=== PATIENT | female | born 1970 | race Caucasian/White ===

== ENCOUNTER 2021-05-12 12:55 | Outpatient (CLI) | payer OTHER, SELFPAY ==
[2021-05-12 14:24] LABS: Basophils Percent Auto 0.8 % (0.2-1.2); Eosinophils Absolute Auto 0.2 K/mm3 (0-0.3); Eosinophils Percent Auto 6.7 % (0-4.4); Hematocrit 37.9 % (37.0-47.0); Hemoglobin 12.6 g/dL (12.0-15.0); Immature Granulocyte Absolute 0.01 K/mm3 (0.00-0.031); Immature Granulocyte Percent A 0.3 % (0-0.5); Lymphocytes Absolute Auto 0.94 K/mm3 (0.9-3.2); Lymphocytes Percent Auto 26.4 % (18.3-44.2); Mean Corpuscular HGB Conc 33.2 g/dl (32-36); Mean Corpuscular Volume 90.2 fl (80-100); Mean Platelet Volume 10.2 fl (7.4-10.4); Monocytes Absolute Auto 0.3 K/mm3 (0.1-0.6); Monocytes Percent Auto 7.9 % (2.6-8.5); Neutrophils Absolute Auto 2.1 K/mm3 (1.3-6.7); Neutrophils Percent Auto 57.9 % (45.5-73.1); Platelet Count Result 287 k/mm3 (150-375); Red Cell Distribution Width 12.1 % (11.5-14.5); White Blood Count 3.6 K/mm3 (4.5-10.0)
== END 2021-05-12 12:56 | disposition home or self-care (01) ==
LOC: ANHSURGERY 12:59
PROVIDERS: PCP Family Medicine; Visit Provider Obstetrics & Gynecology
DX: Z01.812 Encounter for preprocedural laboratory examination (principal); N81.4 Uterovaginal prolapse, unspecified; Z51.81 Encounter for therapeutic drug level monitoring; Z79.899 Other long term (current) drug therapy
CPT/HCPCS: 36415; 85025; 86850; 86900; 86901

== ENCOUNTER 2021-05-16 00:49 | Day surgery (SDC) | payer OTHER, SELFPAY ==
--- NOTE | 2021-04-30 07:39 | PM.IMHP ---
H&P: HPI History of Present Illness Date/Time: 04/30/21 07:39 sh 50-year-old female who is admitted for robotic hysterectomy and bilateral salpingectomy secondary to pelvic pain discomfort and dyspareunia. She has prolapse desires repair. Risks and benefits reviewed including not exclusive of , aspiration pneumonia, bleeding, transfusion, perforation of bowel, bladder, ureters, or other internal organs with need for open laparotomy. She received the [employer] handout entitled hysterectomy as well with the [facility] handout. She had all questions proceed Chief Complaint: uterine prolapse and pelvic pain Review of Systems Review of Systems: All systems reviewed & are unremarkable except as noted in HPI and below Meds Home Medications and Allergies Allergies Allergy/AdvReac Type Severity Reaction Status Date / Time No Known Allergies Allergy Mild Unverified 01/13/10 07:44 Exam Const: General: no acute distress Eyes: General: appearance normal, both eyes and all related structures Neck: Neck: supple and no JVD Thyroid: thyroid normal Resp: Effort & Inspection: normal respiratory effort Auscultation: clear to auscultation bilaterally Cardio: Rate: regular rate Rhythm: regular rhythm GI: Inspection: non-distended GI Palp: Yes Soft to palpation, No Tenderness to palpation present (GI) and No Guarding due to palpation present (GI) Auscultation: normal bowel sounds : External Female Exam: normal external appearance Speculum Exam - Vagina: normal appearance of the vagina Speculum Exam - Cervix: normal appearance of the cervix Bimanual exam- vagina & uterus: enlarged and Uterus displaced ( prolapsed) Bimanual Exam- Adnexa, other: normal adnexae Skin: General skin exam: no rashes or lesions noted Extrem: General: normal to inspection and no edema Psych: Mental Status: mental status grossly normal Affect: normal affect Assessment and Plan Additional Plan impression: Uterine prolapse and pelvic pain Plan: Robotic total vaginal hysterectomy and bilateral salpingo-oophorectomy
[2021-05-07 10:52] VITALS: BMI 25.1
--- NOTE | 2021-05-07 11:04 | PC.NURSE ---
Report to the Outpatient Waiting Room, entrance under the green pavilion located off [facility], at time 10:00 on date 05/16/21. OR Time: 12:00. - You and your visitor will be asked a series of questions to screen for COVID 19 for your protection. - A mask is required within the hospital. One visitor will be allowed to accompany the patient into the hospital. Patients visitor will be instructed to remain with patient at all times or leave the building. We will allow the visitor to come back to the postoperative area when patient is ready. Preoperative COVID Testing Requirements: BRINGING COPY OF CARD No COVID Test needed if: (proof is required; if not received patient will have Rapid Test prior to entry) - Patient has received COVID Vaccine at least 14 days prior to procedure date or - Patient has positive COVID test result within last 90 days of surgery date. COVID Test needed if above criteria is not met Patients may have clear liquids (water, carbonated beverages, clear teas, apple juice) until 3 hours prior to surgery (9:00) with a maximum of 20 ounces. - No food from midnight until time of surgery Take the following medications with a SIP of water the morning of surgery: EUTHYROX Medications to discontinue per physician: N/A Date to take last dose: N/A Please no make-up, nail faroese, hairspray, perfume, deodorant, or body powder the day of surgery. No jewelry (including any body piercings) or valuables the day of surgery, leave them at home. Please take a shower or bath the night before, or the morning of, surgery with an antibacterial soap. Wear comfortable, loose fitting clothing. - Jewelry must be removed prior to entering the operating room. Rings and piercings that are not removed may be cut off. - The hospital will not accept responsibility for valuables. - Please leave all valuables, including medications, at home the day of surgery. If you are going home after surgery, a licensed local intermodal truck driver must drive you home. - NO public transportation without another adult. - We recommend that an adult stay with you for 24 hours following discharge. - We also recommend that you do not drive, make important decision, drink alcoholic beverages, or take any drugs that were not prescribed by your health care provider for at least 24 hours after your discharge time. Follow any additional instructions given to you from your surgeon. Telephone instructions given to MARJ MARTEL and asked if any additional questions and then verbalized understanding. Patient advised to call surgeon office or pre surgery nurse liaison [phone] if any additional questions.
--- NOTE | 2021-05-14 08:03 | PM.IMHP ---
H&P: HPI History of Present Illness Date/Time: 05/14/21 08:03 50 the admitted for robotic hysterectomy and bilateral salpingo-oophorectomy secondary to the enlarged uterus/ uterine prolapse/and pelvic pain risks and benefits reviewed in great detail. She has opted for removal of the ovaries and psychologic and physiologic changes associated that were reviewed in great detail Chief Complaint: uterine prolapse and pelvic pain Review of Systems Review of Systems: All systems reviewed & are unremarkable except as noted in HPI and below PMFSH Social History Social History Smoking status: Never smoker Alcohol intake: current Drinks per week: 3 Substance use: never Substance use type: does not use Spiritual care concerns: No Meds Home Medications and Allergies Home Medications Medication Instructions Recorded Confirmed Type levothyroxine [Euthyrox] 100 mcg PO DAILY 05/07/21 05/07/21 History Allergies Allergy/AdvReac Type Severity Reaction Status Date / Time adhesive tape AdvReac Blister Verified 05/07/21 10:51 Exam Const: General: no acute distress Eyes: General: appearance normal, both eyes and all related structures Neck: Neck: supple and no JVD Thyroid: thyroid normal Resp: Effort & Inspection: normal respiratory effort Auscultation: clear to auscultation bilaterally Cardio: Rate: regular rate Rhythm: regular rhythm GI: Inspection: non-distended GI Palp: Yes Soft to palpation, No Tenderness to palpation present (GI) and No Guarding due to palpation present (GI) Auscultation: normal bowel sounds : External Female Exam: normal external appearance Speculum Exam - Vagina: normal appearance of the vagina Speculum Exam - Cervix: normal appearance of the cervix Bimanual exam- vagina & uterus: enlarged and Uterus displaced ( prolapse present) Bimanual Exam- Adnexa, other: normal adnexae Skin: General skin exam: no rashes or lesions noted Extrem: General: normal to inspection and no edema Psych: Mental Status: mental status grossly normal Affect: normal affect Assessment and Plan Additional Plan impression: Uterine prolapse and pelvic pain with enlarged uterus Plan: Robotic total vaginal direct me and bilateral salpingo-oophorectomy
--- NOTE | 2021-05-15 17:26 | P.PNAN_ITS ---
Anes - Initial Pre Proc Eval Procedure: Operation Date: 05/16/21 12:00 Proposed Procedures p Robotic Assisted Total Vaginal Hysterectomy with Bilateral Salpingo- Oophorectomy - Lc Sheldon MD Date/Time: 05/15/21 17:26 Surgeon: Lc Sheldon MD Pre Op Diagnosis: uterine prolapse, pelvic pain Patient Data Age: 50 Gender: F Height: 1.69 m Weight: 71.67 kg Allergies Allergy/AdvReac Type Severity Reaction Status Date / Time adhesive tape AdvReac Blister Verified 05/07/21 10:51 Home Medications Medication Instructions Recorded Confirmed Type levothyroxine [Euthyrox] 100 mcg PO DAILY 05/07/21 05/07/21 History hydrocodone-acetaminophen 1 tablet PO Q4H PRN #30 tablet 05/16/21 Rx Patient hx anesthesia problems: none Family hx anesthesia problems: none Results Review: All pre-operative results and documents have been reviewed as part of the pre-operative evaluation. [facility] Past Medical History Medical History (Updated 05/16/21 @ 06:38 by Lc Sheldon MD) Hypothyroidism Uterine prolapse Social History Social History Smoking status: Never smoker Alcohol intake: current Drinks per week: 3 Substance use: never Substance use type: does not use Living arrangements: with family Spiritual care concerns: No Anes - Eval Final PreProcedure Day of Procedure 05/15/21 17:26 Patient weight: normal Heart: regular rate and rhythm Lungs: clear to auscultation and normal air movement Airway: Mallampati scale class II Neurological: alert and oriented Last oral intake: >/= 8 hours ASA classification: II Emergent: no Anesthetic plan: proceed Anesthesia type and monitoring: general ETT Results Review: All pre-operative results and documents have been reviewed as part of the pre-operative evaluation. Informed Consent: The patient's anesthetic plan and its attendant risks and benefits were discussed with the patient/family/POA. Questions were solicited and answers provided to the satisfaction of the patient/family/POA.
[2021-05-16] VITALS (9 sets, daily range): BP systolic 119–153; BP diastolic 46–89; PULSE 60–91; RESP 15–16; TEMP 36.6–36.7; O2SAT 95–100
--- NOTE | 2021-05-16 06:37 | WPDHPUPDATE1 ---
History and Physical Update Update Date/Time: 05/16/21 06:37 History and Physical has been reviewed, including an updated exam of the patient. There are NO changes in the patient's condition. Risks, benefits, and alternatives have been discussed and questions answered. Patient agrees to proceed with procedure.
[2021-05-16] MEDS: ACETAMINOPHEN 500 MG TABLET 1000 MG PO (10:46)
[2021-05-16] MEDS: LACTATED RINGERS 1,000 ML 30 ML IV CONT ×2 (11:00→14:05)
[2021-05-16] MEDS: KETOROLAC 15 MG/ML VIAL (*BKC) IV PUSH (11:01)
[2021-05-16] MEDS: ceFAZolin 2 GM/D5W 50 ML 2 GM/50 ML BAG IVPB (12:33)
--- NOTE | 2021-05-16 13:45 | W.PM.PROC2 ---
Procedure Note - Detailed Date of Procedure 05/16/21 Pre-op Diagnosis uterine prolapse, pelvic pain Post-op Diagnosis Same Procedure Performed Robotic total vaginal hysterectomy and bilateral salpingo-oophorectomy Surgeon Lc Sheldon MD Anesthesia General Indications this is a 50-year-old female with enlarged uterus pain and bleeding Findings mildly enlarged uterus. Normal-appearing ovaries and tubes Description of Procedure the patient was prepped draped in the normal sterile fashion placed in dorsal lithotomy position. Under excellent general trach anesthesia speculum placed posterior fornix vagina. Anterior lip of the cervix grasped with single-tooth tenaculum and the uterus sounded to 9cm. Serial dilatation with fragmented dilators performed followed by passage of the 8. BEATA and the 3. 2.5 cold cup. Next the 16 Sinhala catheter was placed in the bladder. Weighted speculum was removed and the gloves were changed A supraumbilical incision made the Veress needle passed in the abdomen. Abdomen filled with CO2 gas 15mmHg. The 8mm trocar advanced in the abdomen downside visualized no injury seen. Gas reattached patient placed in Trendelenburg and right left lateral quadrant incisions made. 8Mm trocars advanced under direct visualization assuring injury to right upper quadrant incision made. The 8mm trocar advanced direct visualization assuring no injury. The robot was docked. Attention was turned to the intellectual property counsel. The left round ligament grasped, burned, cut. Anteriorly a bladder flap was formed by sharply dissecting the peritoneum and reflecting the bladder posteriorly and caudally away from the cervix uterus to the opposite round ligament which was clamped, burned, cut. Next the left and the below pelvic structure was skeletonized. Clamped, burned, cut and brought to the level of previous cut round ligament. In like fashion the right infundibulopelvic structure was skeletonized by clamping burning cutting and following this to the previously cut round ligament on the right. The cardinal broad ligaments on the left were serially skeletonized. These were clamped, burned, cut and brought down the lateral edge to the uterine vessels which were large and tortuous. These were individually clamped, burned, cut. In like fashion the cardinal broad ligaments on the right were serially skeletonized. Clamping burning cutting and bringing these down lateral edge of uterus and cervix. When the large vessels could be seen these were individually clamped, burned, cut. At that point the colpotomy incision was made in the cervix uterus and tubes and ovaries removed through the vagina. The vagina was then closed with continuous running 0V lock from lateral edge lateral edge and back to the midline. Irrigation undertaken clear blood loss estimated 25cc. The instruments removed from the vagina. The patient was awakened and went to recovery in satisfactory condition. All sponge, needle, instrument counts were correct. There were no immediate complications Estimated Blood Loss 25 Drains No Packing No Pathology Yes Complications No immediate complications Condition Stable Disposition PACU
--- NOTE | 2021-05-16 14:47 | SUR.PHASEI ---
1445- pt c/o skinner discomfort. Wants it out as soon as possible. Draining jelani urine, small amt.
[2021-05-16] MEDS: DEXTROSE 5%/LACTATED RINGERS 1,000 ML 125 ML IV CONT (16:17)
[2021-05-16] MEDS: ONDANSETRON INJ 4 MG/2 ML VIAL IV PUSH (16:18)
[2021-05-16] MEDS: KETOROLAC 30 MG/ML VIAL (*BKC) IV PUSH (19:11)
[2021-05-17] VITALS: BP 117/72; PULSE 79; RESP 16; TEMP 36.9; O2SAT 98
[2021-05-17] MEDS: HYDROcodone/acetaminophen (*CRX) 5-325 MG TABLET 1 TAB PO ×2 (00:29→08:49)
[2021-05-17 04:30] VITALS: BP 102/62; PULSE 82; RESP 12; TEMP 36.9; O2SAT 96
[2021-05-17 05:05] LABS: Basophils Percent Auto 0.2 % (0.2-1.2); Hematocrit 35.2 % (37.0-47.0); Hemoglobin 11.8 g/dL (12.0-15.0); Immature Granulocyte Absolute 0.05 K/mm3 (0.00-0.031); Immature Granulocyte Percent A 0.5 % (0-0.5); Lymphocytes Absolute Auto 0.74 K/mm3 (0.9-3.2); Lymphocytes Percent Auto 6.9 % (18.3-44.2); Mean Corpuscular HGB Conc 33.5 g/dl (32-36); Mean Corpuscular Hemoglobin 29.9 pg (26-34); Mean Corpuscular Volume 89.1 fl (80-100); Mean Platelet Volume 10.3 fl (7.4-10.4); Monocytes Absolute Auto 0.6 K/mm3 (0.1-0.6); Monocytes Percent Auto 5.8 % (2.6-8.5); Neutrophils Absolute Auto 9.3 K/mm3 (1.3-6.7); Neutrophils Percent Auto 86.6 % (45.5-73.1); Platelet Count Result 281 k/mm3 (150-375); Red Blood Count 3.95 M/mm3 (4.2-5.4); Red Cell Distribution Width 11.9 % (11.5-14.5); White Blood Count 10.7 K/mm3 (4.5-10.0)
--- NOTE | 2021-05-17 08:03 | PM.DS ---
DS: Admitting Diagnosis Discharge Date 05/17/2021 Admitting Diagnosis enlarged uterus/pelvic pain/prolapse DS: Summary Hospital Course Hospital Course: patient was admitted for robotic total vaginal hysterectomy bilateral salpingo-oophorectomy. This was done robotically on 05/16/2021. Please see the operative report for full details. She remained afebrile. She was up, voiding without difficulty, ambulating, generally without complaints. Routine discharge instructions were given Time Spent with Patient Time attestation: Total time spent providing and/or coordinating discharge services: Exam Const: General: no acute distress Eyes: General: appearance normal, both eyes and all related structures Neck: Neck: supple and no JVD Thyroid: thyroid normal Resp: Effort & Inspection: normal respiratory effort Auscultation: clear to auscultation bilaterally Cardio: Rate: regular rate Rhythm: regular rhythm GI: Inspection: non-distended GI Palp: Yes Soft to palpation, No Tenderness to palpation present (GI) and No Guarding due to palpation present (GI) Auscultation: normal bowel sounds : General: Yes bladder normal to palpation External Female Exam: normal external appearance Speculum Exam - Vagina: normal vaginal discharge and No vaginal bleeding Speculum Exam - Cervix: nontender Bimanual exam- vagina & uterus: bladder normal to palpation and No Cervical tenderness present OB/external & speculum: No vaginal bleeding Skin: General skin exam: no rashes or lesions noted Extrem: General: normal to inspection and no edema Psych: Mental Status: mental status grossly normal Affect: normal affect DS: Data Data Completed and Pending Pending studies at discharge: Pending at discharge 05/16/21 13:30 Surgical [PTH] Routine Labs on day of discharge: Labs from last 24 hours 05/17/21 04:26 WBC 10.7 H RBC 3.95 L Hgb 11.8 L Hct 35.2 L MCV 89.1 MCH 29.9 MCHC 33.5 RDW 11.9 Plt Count 281 MPV 10.3 Immature Gran % (Auto) 0.5 Neut % (Auto) 86.6 H Lymph % (Auto) 6.9 L [place] % (Auto) 5.8 Eos % (Auto) 0.0 Baso % (Auto) 0.2 Lymph # (Auto) 0.74 L [place] # (Auto) 0.6 Eos # (Auto) 0.0 Baso # (Auto) 0.0 Abs Immat Gran (auto) 0.05 H Absolute Neuts (auto) 9.3 H Absolute Nucleated RBC 0.0 Nucleated RBC % 0.0 Discharge Plan Discharge Patient Disposition: Home, Self-Care Stand Alone Forms: General Discharge Instructions Follow-up/Referrals: Lc Sheldon MD [Physician] - Discharge Medications: New hydrocodone-acetaminophen 5-325 mg tablet 1 tablet PO Q4H PRN (Reason: pain) Qty: 30 RF: 0 No Action levothyroxine [Euthyrox] 100 mcg Tablet 100 mcg PO DAILY RF: 0
--- NOTE | 2021-05-17 08:04 | PM.GYNPNOP ---
MIXING TECHNICIAN - A/P Postoperative Procedures: Procedures Operation Date: 05/16/21 12:00 Actual Procedure Side Surgeon p Robotic Assisted Total Vaginal Hysterectomy with Bilateral Salpingo-Oophorectomy Bilateral Lc Sheldon MD Postoperative day: 1 Postoperative status: doing well Postoperative plan: routine post-op care, ambulate, advance diet and discharge Time Spent With Patient Time: Total time spent is greater than 50% in coordination of care (as documented) at patient's floor/unit and/or counseling patient: Time with patient: less than 15 minutes MIXING TECHNICIAN- PN:Subj Post-Op Subjective Date/time seen: 05/17/21 08:04 Subjective: patient reports feeling better, patient has no complaints and patient desires discharge Review of Systems Review of Systems: All systems reviewed & are unremarkable except as noted in HPI and below Exam Const: General: no acute distress Eyes: General: appearance normal, both eyes and all related structures Neck: Neck: supple and no JVD Thyroid: thyroid normal Resp: Effort & Inspection: normal respiratory effort Auscultation: clear to auscultation bilaterally Cardio: Rate: regular rate Rhythm: regular rhythm GI: Inspection: non-distended GI Palp: Yes Soft to palpation, No Tenderness to palpation present (GI) and No Guarding due to palpation present (GI) Auscultation: normal bowel sounds : General: Yes bladder normal to palpation External Female Exam: normal external appearance Speculum Exam - Vagina: normal vaginal discharge and No vaginal bleeding Speculum Exam - Cervix: nontender Bimanual exam- vagina & uterus: bladder normal to palpation and No Cervical tenderness present OB/external & speculum: No vaginal bleeding Skin: General skin exam: no rashes or lesions noted Extrem: General: normal to inspection and no edema Psych: Mental Status: mental status grossly normal Affect: normal affect MIXING TECHNICIAN - PN: Obj Data Vital Signs Vital Signs: Vital Signs - 24 hr 05/16/21 11:03 05/16/21 14:05 05/16/21 14:20 Temperature 98.1 F 98.1 F Pulse Rate 91 78 87 Respiratory Rate 16 16 16 Blood Pressure 119/79 153/89 H 149/79 H Pulse Oximetry 100 100 100 05/16/21 14:33 05/16/21 14:48 05/16/21 15:03 Temperature Pulse Rate 64 60 63 Respiratory Rate 15 15 16 Blood Pressure 146/46 H 144/83 H 139/80 Pulse Oximetry 98 95 95 05/16/21 15:18 05/16/21 15:30 05/16/21 19:00 Temperature 97.8 F 98.1 F Pulse Rate 74 73 87 Respiratory Rate 15 16 16 Blood Pressure 139/79 138/86 138/75 Pulse Oximetry 96 100 05/17/21 00:00 05/17/21 04:30 Temperature 98.5 F 98.4 F Pulse Rate 79 82 Respiratory Rate 16 12 Blood Pressure 117/72 102/62 Pulse Oximetry 98 96 Intake/Output Intake/Output: Intake & Output 05/14/21 05/15/21 05/16/21 05/17/21 23:59 23:59 23:59 23:59 Intake Total 650 1000 Output Total 230 1750 Balance 420 -750 Meds/Results Medications: Active Medications Generic Name Dose Route Start Last Admin Trade Name Freq PRN Reason Stop Dose Admin Hydrocodone Bitart/Acetaminophen 1 tab 05/16/21 15:20 05/17/21 00:29 Hydrocodone/Acetaminophen (*Crx) 5-325 Mg Tablet PO 1 tab Q3H PRN Administration Pain Rated 5 or Less Hydrocodone Bitart/Acetaminophen 1 tab 05/16/21 15:20 Hydrocodone/Acetaminophen (*Crx) 10-325 Mg Tablet PO Q3H PRN Pain Rated 6 or Greater Docusate Sodium 100 mg 05/16/21 17:00 Docusate Sodium 100 Mg Capsule PO BID DIXON Enoxaparin Sodium 40 mg 05/17/21 09:00 Enoxaparin 40 Mg/0.4 Ml Syringe SUB-Q DAILY DIXON Dextrose/Lactated Ringer's 1,000 mls @ 125 mls/hr 05/16/21 15:20 05/16/21 16:17 Dextrose 5%/Lactated Ringers IV CONT 125 mls/hr .Q8H DIXON Administration Ibuprofen 600 mg 05/16/21 15:20 Ibuprofen 600 Mg Tablet PO Q6H PRN Cramping Ketorolac Tromethamine 30 mg 05/16/21 15:20 05/16/21 19:11 Ketorolac 30 Mg/Ml Vial (*Bkc) IV PUSH 05/21/21 15:19 30 mg Q6H PRN
[2021-05-17] MEDS: SIMETHICONE 80 MG TAB.CHEW PO (08:48)
[2021-05-17] MEDS: ENOXAPARIN 40 MG/0.4 ML SYRINGE SUB-Q (08:48)
[2021-05-17] MEDS: DOCUSATE SODIUM 100 MG CAPSULE PO (08:48)
[2021-05-17] MEDS: LEVOTHYROXINE SODIUM 100 MCG TABLET PO (08:49)
[2021-05-17 09:56] VITALS: PULSE 82; RESP 12; O2SAT 96
== END 2021-05-17 10:45 | disposition home or self-care (01) ==
LOC: ANHSURGERY 09:58 → ANHOB2 15:22
PROVIDERS: PCP Family Medicine; Visit Provider Obstetrics & Gynecology
PROC: (CPT 58552; principal; 2021-05-16 12:00)
DX: N81.4 Uterovaginal prolapse, unspecified (principal); R10.2 Pelvic and perineal pain; N80.0 Endometriosis of uterus; N73.6 Female pelvic peritoneal adhesions (postinfective); N94.10 Unspecified dyspareunia; E03.9 Hypothyroidism, unspecified
CPT/HCPCS: 58552; S2900; 36415; 85025; 86850; 86900; 86901; 88307; 99199; A9270; J0330; J0690; J1100; J1170; J1650; J1885; J2250; J2405; J2704; J2710; J3010; J7030; J7120; J7121

== ENCOUNTER 2021-12-26 01:52 | Day surgery (SDC) | payer OTHER, SELFPAY ==
[2021-12-18 11:06] VITALS: BMI 24.8
[2021-12-26 13:32] VITALS: BP 101/73; PULSE 106; RESP 20; TEMP 36.2; O2SAT 95
[2021-12-26] MEDS: LACTATED RINGERS 1,000 ML 150 ML IV CONT (13:48)
--- NOTE | 2021-12-26 13:48 | P.PNAN_ITS ---
Anes - Initial Pre Proc Eval Procedure: Operation Date: 12/26/21 14:45 Proposed Procedures p Colonoscopy - Crow Harman MD Date/Time: 12/26/21 13:48 Surgeon: Crow Harman MD Pre Op Diagnosis: diarrhea Patient Data Age: 51 Gender: F Height: 1.7 m Weight: 70.4 kg Last Vital Signs Temp 97.2 F L 12/26/21 13:32 Pulse 106 H 12/26/21 13:32 Resp 20 12/26/21 13:32 BP 101/73 12/26/21 13:32 Pulse Ox 95 12/26/21 13:32 O2 Del Method Room Air 12/26/21 13:32 Allergies Allergy/AdvReac Type Severity Reaction Status Date / Time adhesive tape AdvReac Blister Verified 12/26/21 13:30 Home Medications Medication Instructions Recorded Confirmed Type levothyroxine 100 mcg tablet 100 mcg PO DAILY 05/07/21 12/18/21 History (Euthyrox) lorazepam 0.5 mg tablet 0.5 mg PO TID PRN Anxiety 12/04/21 12/18/21 History fidaxomicin 200 mg tablet (Dificid) 200 mg PO Q12H 14 days #28 tabs 12/19/21 12/26/21 Rx Patient hx anesthesia problems: none Family hx anesthesia problems: none Results Review: All pre-operative results and documents have been reviewed as part of the pre- operative evaluation. [facility] Past Medical History Medical History (Updated 12/04/21 @ 16:33 by NESHA CrewsN-Vasyl) Abdominal pain Diarrhea Hypothyroidism Uterine prolapse Social History Social History Smoking status: Never smoker Alcohol intake: current Drinks per week: 3 Alcohol use details: socially Substance use: never Substance use type: does not use Living arrangements: with family Spiritual care concerns: No Anes - Eval Final PreProcedure Day of Procedure 12/26/21 13:48 Patient weight: normal Heart: regular rate and rhythm Lungs: clear to auscultation Airway: Mallampati scale class II Neurological: alert and oriented Last oral intake: >/= 8 hours ASA classification: II Emergent: no Anesthetic plan: proceed Anesthesia type and monitoring: general GIVS and standard monitoring Results Review: All pre-operative results and documents have been reviewed as part of the pre- operative evaluation. Informed Consent: The patient's anesthetic plan and its attendant risks and benefits were discussed with the patient/family/POA. Questions were solicited and answers provided to the satisfaction of the patient/family/POA.
--- NOTE | 2021-12-26 14:15 | WPDHPUPDATE1 ---
History and Physical Update Update Date/Time: 12/26/21 14:15 History and Physical has been reviewed, including an updated exam of the patient. There are NO changes in the patient's condition. Risks, benefits, and alternatives have been discussed and questions answered. Patient agrees to proceed with procedure.
[2021-12-26 14:32] VITALS: BP 123/79; PULSE 91; RESP 15; O2SAT 98
[2021-12-26 14:42] VITALS: BP 128/85; PULSE 79; RESP 19; O2SAT 100
[2021-12-26 14:52] VITALS: BP 121/81; PULSE 77; RESP 18; O2SAT 100
== END 2021-12-26 15:08 | disposition home or self-care (01) ==
PROVIDERS: PCP Family Medicine; Visit Provider Internal Medicine Gastroenterology
PROC: 0DJD8ZZ Inspection of Lower Intestinal Tract, Via Natural or Artificial Opening Endoscopic (ICD-10-PCS; CPT 45378; principal; 2021-12-26 14:45)
DX: Z12.11 Encounter for screening for malignant neoplasm of colon (principal); D12.5 Benign neoplasm of sigmoid colon; K63.5 Polyp of colon; K64.8 Other hemorrhoids; K64.4 Residual hemorrhoidal skin tags
CPT/HCPCS: 45385; 45380; 88305; J2704; J7120